=== PATIENT | female | born 1995 | race Asian ===

== ENCOUNTER 2025-04-24 08:15 | Emergency (ER) | payer OTHER, SELFPAY ==
[2025-04-24 08:18] VITALS: BP 116/66; PULSE 80; RESP 18; TEMP 37.2; O2SAT 99; BMI 18.7
[2025-04-24 08:30] VITALS: BP 116/66; PULSE 80; RESP 18; TEMP 37.2; O2SAT 99
--- NOTE | 2025-04-24 08:32 | PC.NURSE ---
30 F presents to ED with some facial swelling, lower lip swelling since 10pm last night. Pt sts she ate her normal food, doesn't know what caused it. RR even and unlabored, denies CP or SOB. Airway is patent and pt is able to speak in full and complete sentences. A+Ox4, calm, cooperative, ambulatory.
--- OUTSIDE RECORDS SUMMARY | 2025-04-24 08:43 | XMS_ITS | Clinical Summary ---
Author Organization [facility] Address [address] [address] Phone Care Team Providers Care Mapper Name Role Phone Taylor Sen DO Primary Care Provider [phone] Encounters Date Type Department Care Team Description 04/12/2025 Transcribe Orders Virtual Department [address] [place], [place] [id number] Taylor Sen, Personal history of (healed) osteoporosis fracture (Primary Dx); Encounter for immunization from Last 3 Months Social History Tobacco Use Types Packs/Day Years Used Date Smoking Tobacco: Never Assessed Education Answer Date Recorded Are you interested in more education? Not on [place] e 04/13/2025 Are you concerned about learning? Not on file 04/13/2025 No 04/13/2025 No 04/13/2025 Digital Access Answer Date Recorded No 04/13/2025 No 04/13/2025 Reliable internet access at home? Not on file 04/13/2025 Device with a working camera? Not on file Comments Unknown Sex and Gender Information Value Date Recorded Sex Assigned at Not on file Legal Sex Female 3:56 PM EDT Gender Identity Not on file Sexual Orientation Not on file Plan of Treatment Not on file Medical Devices Not on file Insurance [employer] Member Subscriber Plan / Payer (Ef fective 2023-Present) Name:Jacques Aranda Relation to Subscriber:Self Name:Jacques Aranda Payer ID:[id number] ([facility]) Type:PPO Address: [facility] [id number] [place] [phone] [facility] ALANA ESTRADAT ALANA GRIFFIN Care Teams Mapper Relationship Specialty Start Date End Date Taylor Sen DO [address] [place] [id number] [email or web address] PCP - General Family Medicine 04/15/25 Additional Source Comments The information contained in this document represents components of the legal health record. It is not the complete legal health record.[facility]
[2025-04-24 08:48] LABS: MANUAL DIFF FLAG NO
[2025-04-24 08:52] LABS: Hematocrit 36.6 % (37.0-47.0); Hemoglobin 11.9 g/dl (12.0-16.0); Imm Gran Abs Auto 0.01 X10*3/uL (0.00-0.03); Imm Gran Pct Auto 0.1 % (0.0-0.4); Lymphocytes Absolute Auto 1.5 X10*3/uL (1.2-4.9); Mean Corpuscular HGB Conc 32.5 g/dl (31.0-35.0); Mean Corpuscular Hemoglobin 29.8 pg (27.0-33.0); Mean Corpuscular Volume 91.7 fL (80.0-98.0); NRBC Abs Auto 0.000 X10*3/uL (0.0-0.012); NRBC Pct Auto 0.0 /100WBC (0.0-0.2); Platelet Count 221 X10*3/uL (160-400); Red Blood Count 3.99 X10*6/uL (4.20-5.50); White Blood Count 7.1 X10*3/uL (4.8-10.8)
[2025-04-24 09:06] LABS: Alanine Aminotransferase 14 U/L (0-31); Albumin Level 4.3 g/dL (3.5-5.0); Alkaline Phosphatase 57 U/L (39-117); Anion Gap 10 (12-20); Aspartate Amino Transferase 20 U/L (5-31); Blood Urea Nitrogen 9 mg/dL (9-16); Calcium 8.7 mg/dL (8.4-10.2); Carbon Dioxide 26 mmol/L (22-29); Chloride 108 mmol/L (96-108); Creatinine Clr Calc Pharmacy 97.2; Estimated Glomerular Filt Rate > 60; Potassium 3.7 mmol/L (3.3-5.1); Sodium 140 mmol/L (135-145); Total Protein 7.1 g/dL (6.5-8.0)
--- NOTE | 2025-04-24 09:26 | ED.GENADULT ---
HPI - General Adult General Chief complaint: Allergic Reaction Stated complaint: allergic reaction, swollen lips, unsure of cause Time Seen by Provider: 04/24/25 08:53 Source: patient Mode of arrival: ambulatory Limitations: no limitations History of Present Illness ED Provider: KIM Nicole HPI narrative: This is a 30-year-old female who presents with swelling to upper and lower lips reports it started at 22:00 last night. She tells me that this has happened to her in the past years ago when she ate seafood however she did not eat seafood or anything that contains see food that she knows of. She tells me she took something for allergies last night however did not seem to help completely. She denies changes in voice, trouble swallowing, drooling, fevers, chills, nausea, vomiting, diarrhea, abdominal pain, headache, vision changes, dizziness, chest pain and shortness of breath. Related Data Previous Rx's ?Medication ?Instructions ?Recorded amoxicillin 875 mg-potassium 1 tab PO BID 7 days #14 tabs 04/24/25 clavulanate 125 mg tablet diphenhydramine HCl 25 mg capsule 25 mg PO TID PRN allergic reaction 04/24/25 (Benadryl) #20 caps epinephrine 0.3 mg/0.3 mL 0.3 mg (0.3 mL) IM Q4H PRN 04/24/25 injection, auto-injector (EpiPen anaphylaxis #2 ea 2-Ed) famotidine 20 mg tablet (Pepcid) 20 mg PO DAILY 14 days #14 tabs 04/24/25 prednisone 20 mg tablet 40 mg (2 x 20 mg) PO DAILY 5 days 04/24/25 #10 tabs Allergies Allergy/AdvReac Type Severity Reaction Status Date / Time No Known Allergies Allergy Verified 04/24/25 08:21 Review of Systems Review of Systems: Yes all other systems are reviewed and are negative PMFSH Past Medical History Attestation statement: The following information was validated with the patient. Source: old records reviewed and nursing notes reviewed Social History Social History Smoked in Last 30 Days: No Use of substances other than those prescribed or required for medical reasons: No Advance Directives: No Advance Directives Information Provided: Yes Do you have a plan to hurt others: No Plan Physical Exam ED Exam Exam: Appearance: Alert.? Oriented X3.? No acute distress.? Head: Normocephalic, atraumatic, no step-offs or deformities Eyes: Pupils equal, round and reactive to light.? ENT: Pharynx normal.? Airway patent normal hard and soft palate. Uvula midline not swollen. Speaking in full sentences controlling secretions well. Upper and lower lip with edema lower lip greater than upper lip. She is also noted to have a significant amount of acne surrounding lower lip. Mild erythema overlying acne. Neck: Normal inspection.? Neck supple. CVS: Normal heart rate and rhythm.? Pulses normal.? Respiratory: No respiratory distress.? Breath sounds normal.? Abdomen: Soft and nontender.? Skin: Skin warm and dry.? Normal skin color.? Normal skin turgor.? Extremities: No lower extremity edema.? No calf ttp. 5/5 strength to bilateral upper and lower extremities Back: No midline tenderness, no C-spine tenderness, full range of motion, no CVA tenderness bilaterally Neuro: Oriented X 3.? No motor deficit.? No sensory deficit. CN 2-12 intact Vital Signs: Vital Signs - 24 hr 04/24/25 08:18 04/24/25 08:30 04/24/25 10:16 Temperature 98.9 F 98.9 F Pulse Rate 80 80 80 Respiratory Rate 18 18 16 Blood Pressure 116/66 116/66 Pulse Oximetry 99 99 100 Oxygen Delivery Method Room Air Room Air Room Air BMI result Body Mass Index 18.7 vss Course Reevaluation(s) Reevaluation #1: CBC with a normocytic anemia. Chemistry no acute findings needing intervention. Time: 09:54 Reevaluation #2: Patient's lip swelling improved however lower lip still slightly swollen. There is acne to that lower lip. Will treat with Augmentin in case there is superimposed infection. Educated patient on diagnosis and treatment plan, answered all question, patient verbalizes understanding. At this time patient will be discharged home, advised to return with new or worsening symptoms. Educated on worrisome signs and symptoms and when to return. At this time I feel comfortable discharge home. Time: 11:41 Medications Administered Discontinued Medications Generic Name Dose Route Start Last Admin Trade Name Freq PRN Reason Stop Dose Admin Dexamethasone Sodium Phosphate 10 mg 04/24/25 09:26 04/24/25 09:43 Dexamethasone Sod Phosphate 10 Mg/Ml Vial IVPUSH 04/24/25 09:27 10 mg ONCE ONE Administration Diphenhydramine HCl 50 mg 04/24/25 09:26 04/24/25 09:43 Diphenhydramine Hcl 50 Mg/Ml Vial IVPUSH 04/24/25 09:27 50 mg ONCE ONE Administration Famotidine 20 mg 04/24/25 09:26 04/24/25 09:43 Famotidine/Pf 20 Mg/2 Ml Vial IVPUSH 04/24/25 09:27 20 mg ONCE ONE Administration Medical Decision Making Medical Decision Making MDM Narrative: 30-year-old female presents with swelling of the lip since last night. No shortness of breath, drooling, changes in voice or shortness of breath. On exam she does have swollen lips upper and lower lower lip more swollen than upper lip. She does have a significant amount of acne surrounding lower lip with overlying erythema. I am concerned for allergic reaction versus angioedema with possible early infection to lower lip secondary to acne. I do not suspect Demond's, threat to airway, respiratory distress, anaphylaxis. Plan-IV benadryl, pepcid and decadron will monitor Differential Diagnosis Differential Diagnoses: The differential diagnosis associated with the presentation includes (I am concerned for allergic reaction versus angioedema with possible early infection to lower lip secondary to acne. I do not suspect Demond's, threat to airway, respiratory distress, anaphylaxis.) Admission/Observation Consideration of admission/observation: Escalation of care including admission/observation considered Consult Healthcare Provider Management of the patient was discussed with: Hospitalist Lab Data [facility] Lab Attestation statement: I reviewed the patient's lab results. 04/24/25 08:43 04/24/25 08:43 Labs: Lab Results 04/24/25 Range/Units 08:43 WBC 7.1 (4.8-10.8) X10*3/uL RBC 3.99 L (4.20-5.50) X10*6/uL Hgb 11.9 L (12.0-16.0) g/dl Hct 36.6 L (37.0-47.0) % MCV 91.7 (80.0-98.0) fL MCH 29.8 (27.0-33.0) pg MCHC 32.5 (31.0-35.0) g/dl RDW 11.1 (11.0-16.0) % Plt Count 221 (160-400) X10*3/uL MPV 8.3 L (9.4-12.3) fL Immature Gran % (Auto) 0.1 (0.0-0.4) % Neut % (Auto) 69.0 (45-73) % Lymph % (Auto) 21.5 (20-40) % [place] % (Auto) 8.0 (2-11) % Eos % (Auto) 1.1 (0-4) % Baso % (Auto) 0.3 (0-2) % Lymph # (Auto) 1.5 (1.2-4.9) X10*3/uL [place] # (Auto) 0.6 (0.1-1.2) X10*3/uL Eos # (Auto) 0.1 (0.0-0.4) X10*3/uL Baso # (Auto) 0.0 (0.0-0.2) X10*3/uL Abs Immat Gran (auto) 0.01 (0.00-0.03) X10*3/uL Absolute Neuts (auto) 4.9 (2.0-8.3) x10*3/uL Absolute Nucleated RBC 0.000 (0.0-0.012) X10*3/uL Nucleated RBC % (auto) 0.0 (0.0-0.2) /100WBC Sodium 140 (135-145) mmol/L Potassium 3.7 (3.3-5.1) mmol/L Chloride 108 (96-108) mmol/L Carbon Dioxide 26 (22-29) mmol/L Anion Gap 10 L (12-20) BUN 9 (9-16) mg/dL Creatinine 0.64 (0.5-1.4) mg/dL Estim Creat Clear Calc 97.2 Estimated GFR > 60 Random Glucose 86 (60-115) mg/dL Calcium 8.7 (8.4-10.2) mg/dL Total Bilirubin 0.6 (0.0-1.0) mg/dL AST 20 (5-31) U/L ALT 14 (0-31) U/L Alkaline Phosphatase 57 (39-117) U/L Total Protein 7.1 (6.5-8.0) g/dL Albumin 4.3 (3.5-5.0) g/dL Critical Care Time Critical Care Time Critical Care Time: Yes Total Critical Care Time: 35 Attestation: I attest to this time spent taking care of the patient, obtaining history, physical, reviewing labs, imaging, treatment of patients condition +/- specialist/hospitalist consult +/- procedure Discharge Plan Discharge Clinical Impression: Allergic reaction, Angioedema Patient Disposition: Home, Self-Care Instructions: Angioedema (ED), General Allergic Reaction (ED), Allergy Testing (ED) Additional Instructions: Take your medications as prescribed. If you were prescribed antibiotics today, it is important that you take your medication to their entirety, do not skip any doses, do not finish them early. Follow-up with your primary care provider this week. Return to the emergency department with new or worsening symptoms. Such as fevers, chills, chest pain, shortness of breath, nausea, vomiting, dizziness, headache, vision changes, lethargy In case of emergency call 911 Please follow-up with an allergy doctor I am covering him with antibiotics in case this is an early infection of the lip. How to use an EpiPen: ? Place the orange tip against the middle of the outer thigh. ? Swing and push the auto-injector firmly into the thigh until it ?clicks? ? Hold firmly in place for three seconds?count slowly, ?1, 2, 3? An EpiPen has been sent to your pharmacy this should only be used in severe emergency such as inability to breathe trouble speaking, shortness breath or any signs of anaphylaxis as discussed. If he use an EpiPen it is crucial you come in to an emergency department to be evaluated as you can have a rebound effect. Please follow-up with an allergy doctor. Prescriptions: New diphenhydramine HCl [Benadryl] 25 mg capsule 25 mg PO TID PRN (Reason: allergic reaction) Qty: 20 0RF famotidine [Pepcid] 20 mg tablet 20 mg PO DAILY 14 Days Qty: 14 0RF prednisone 20 mg tablet 40 mg PO DAILY 5 Days Qty: 10 0RF amoxicillin-pot clavulanate 875-125 mg tablet 1 tab PO BID 7 Days Qty: 14 0RF epinephrine [EpiPen 2-Ed] 0.3 mg/0.3 mL auto-injector 0.3 mg IM Q4H PRN (Reason: anaphylaxis) Qty: 2 0RF Referrals: Physician,None [Primary Care Provider, Medical] Stand Alone Forms: Work/School Release Print Language: Luxembourgish
[2025-04-24 10:16] VITALS: PULSE 80; RESP 16; O2SAT 100
--- NOTE | 2025-04-24 10:16 | PC.NURSE ---
Pt appears more comfortable following medications, facial/lip swelling has decreased. Pt calm, cooperative, denies any pain or discomfort. Pt provided with apple juice, maciej crackers, and water after getting ok from provider. RR even and unlabored, no visible s/s of distress.
[2025-04-24 12:01] VITALS: BP 104/68; PULSE 80; RESP 18; TEMP -17.7; TEMP 0; O2SAT 99
== END 2025-04-24 12:07 | disposition home or self-care (01) ==
PROVIDERS: Emergency Provider Emergency Medicine
DX: L50.0 Allergic urticaria (principal); R22.0 Localized swelling, mass and lump, head; Z79.899 Other long term (current) drug therapy
CPT/HCPCS: 36415; 80053; 85025; 96374; 96375; 99284; J1100; J1200; J1308